=== PATIENT | female | born 1980 | race Caucasian/White ===

== ENCOUNTER 2016-09-12 14:50 | Emergency (ER) | payer MEDICAID ==
[2016-09-12 15:52] LABS: COLOR YELLOW; LEUKOCYTE ESTERASE,URINE NEGATIVE (NEGATIVE); NITRITE,URINE NEGATIVE (NEGATIVE); PH,URINE 5.5 (5.0-7.5)
--- NOTE | 2016-09-12 16:03 | UCPHY ---
[id number] since yesterday. Denies fever/chills Source: Patient Exam Limitations: No limitations - Personal History LMP (Females 10-55): IUD In Place Tetanus Vaccine Date: less than 10 years - Medical/Surgical History Hx Asthma: No Hx Chronic Respiratory Disease: No Hx Diabetes: No Hx Cardiac Disease: No Hx Renal Disease: No Hx Cirrhosis: No Hx Alcoholism: No Hx HIV/AIDS: No Hx Splenectomy or Spleen Trauma: No Other PMH: Med hx-PCOS. Surg-umbilical hernia,2 c-sect,bilat feet,appy - Family History Significant Family History: No pertinent family hx - Social History Smoking Status: Never smoked Time Seen by Provider: 09/12/16 15:21 HPI/ROS: CHIEF COMPLAINT: urinary frequency, urgency, suprapubic pain HISTORY OF PRESENT ILLNESS: 36-year-old female with history of PCOS and IUD in place presents to Urgent Care complaining of urinary frequency and urgency that started last night and has continued today. Patient reports mild suprapubic tenderness. Patient denies dysuria or hematuria. No nausea, vomiting or diarrhea. Patient reports this feels similar to previous urinary tract infections. Patient denies vaginal discharge, she reports she has not been sexually active for over a year, she denies history of STDs. Patient denies back pain. REVIEW OF SYSTEMS: A comprehensive 10 point review of systems is otherwise negative aside from elements mentioned in the history of present illness. (Fidelina Adhikari) - Physical Exam Exam: Physical Exam Gen: Alert and Oriented, NAD HEENT: PERRL, moist mucous membranes NECK: no meningismus CV: regular rate and regular rhythm PULM: CTAB, no wheezes ABDOMEN: soft, right and left lower quadrant tenderness to palpation with suprapubic tenderness, no rebound tenderness, no peritoneal signs BS present BACK: No CVA tenderness NEURO: Neurologically grossly intact EXTREMITIES: normal appearing SKIN: no rash or break in skin on exposed skin PSYCH: answers questions appropriately. (Fidelina Adhikari) Constitutional: Initial Vital Signs Temperature (C) 36.7 C 09/12/16 15:24 Heart Rate 82 09/12/16 15:24 Respiratory Rate 16 09/12/16 15:24 Blood Pressure 127/75 H 09/12/16 15:24 O2 Sat (%) 97 09/12/16 15:24 O2 Delivery Mode Room Air Allergies/Adverse Reactions: cephalexin monohydrate [From Keflex] Allergy (Mild, Verified 09/12/16 15:23) latex [Latex] Allergy (Mild, Verified 09/12/16 15:23) hydrocodone bitartrate [From Vicodin] Allergy (Verified 09/12/16 15:23) Home Medications: Medication Instructions Recorded EPINEPHRINE [EPIPEN] 0.3 mg IJ ONCE PRN #2 kit 02/19/16 Metformin HCl 09/12/16 Medical Decision Making ED Course/Re-evaluation: 36-year-old nontoxic-appearing female presents complaining of urinary frequency and urgency that started last night and is worse today. She reports suprapubic tenderness. Urinalysis shows no evidence of urinary tract infection, urine test is negative. Patient has a history of PCOS, she has a IUD in place. Patient has lower abdominal tenderness to palpation on exam, I am recommending an ultrasound and ultrasound is not available at Urgent Care, she agrees to go to [facility] for further evaluation including ultrasound. I have spoken with Dr. Gaston about this patient. Patient will drive to the [facility] right now. ( Fidelina Adhikari) Urgent Care PA supervision Physician documentation: The patient was evaluated and managed by the physician assistant librarian. My co- signature indicates that I have reviewed this chart and I agree with the findings and plan of care as documented. I am the secondary supervising physician. (Israel Kowalski) Differential Diagnosis: Diagnosis considered but not limited to urinary tract infection, ovarian cyst, ovarian torsion, STD, PID (Fidelina Adhikari) - Data Points Laboratory Results: Laboratory Results 09/12/16 17:43 09/12/16 17:43 Departure - Departure Disposition: Home, Routine, Self-Care Clinical Impression: Pelvic pain Condition: Good Instructions: Pelvic Pain in Women (ED), Abdominal Pain (ED) Additional Instructions: Follow-up with your primary care doctor for continued evaluation and care If symptoms worsen or new symptoms develop return to the emergency department for recheck Referrals: Claribel Martinez MD [Primary Care Provider] - As per Instructions - PQRS PQRS Measurement: na (Fidelina Adhikari)
[2016-09-12 17:13] VITALS: TEMP 98.4
[2016-09-12 18:23] LABS: % IMMATURE GRANULYOCYTES 0.5 % (0.0-1.1); ABSOLUTE IMMATURE GRANULOCYTES 0.04 10^3/uL (0.00-0.10); ADD DIFF? NO; ADD MORPH? NO; ADD SCAN? NO; ATYPICAL LYMPHOCYTE FLAG 10 (0-99); FRAGMENT RBC FLAG 0 (0-99); HEMOGLOBIN 13.2 g/dL (12.6-16.3); LEFT SHIFT FLG 0 (0-99); LIPEMIA HEMOLYSIS FLAG 90 (0-99); MEAN CELL HEMOGLOBIN 31.3 pg (27.9-34.1); MEAN CELL HEMOGLOBIN CONCENTR. 33.8 g/dL (32.4-36.7); MEAN CELL VOLUME 92.4 fL (81.5-99.8); MEAN PLATELET VOLUME 9.3 fL (8.7-11.7); PLATELET CLUMPS FLAG 0 (0-99); PLATELET COUNT 342 10^3/uL (150-400); RED BLOOD CELL COUNT 4.22 10^6/uL (4.18-5.33); RED CELL DISTRIBUTION WIDTH 12.6 % (11.5-15.2)
[2016-09-12 18:29] LABS: ANION GAP 8 mEq/L (8-16); CALCIUM 9.4 mg/dL (8.5-10.4); CARBON DIOXIDE 28 mEq/l (22-31); CHLORIDE 102 mEq/L (97-110); CREATININE 0.7 mg/dL (0.6-1.0); GLOMERULAR FILTRATION RATE > 60; GLUCOSE 96 mg/dL (70-100); SODIUM 138 mEq/L (134-144)
--- NOTE | 2016-09-12 19:13 | US ---
Transabdominal and Endovaginal Pelvic Ultrasound Clinical History: 36-year-old female in the ED with pelvic pain for 2 days. Her LMP is unknown, and s he has a Mirena IUD. She is with a prior history of PCOS. The patient is beta-hCG negative. TECHNIQUE: A curvilinear 5 MHz transducer was initially used to sonographically evaluate the pelvis, using a full urinary bladder as a window. To better assess the uterine architecture and the adnexal s tructures, endovaginal pelvic sonography was also performed. Color and spectral Doppler were used. Comparison: Pelvic sonography, dated October 22, 2012. Findings: Transabdominal Pelvic Sonography: The uterus measures 8.3 x 5.1 x 4.8 cm. The right and left ovaries are identified. The right ovary measures 2.3 x 1.5 x 3.1 cm, and the left ovary 2.5 x 3.2 x 2.7 cm an d contains a hemorrhagic follicular cyst measuring 1.9 x 1.6 x 2.0 cm. Intraovarian vascular flow is documented, with a resistive index on the left ovary measuring 0.64, and on the right ovary measuring 0.58. There is no free fluid. The visualized portions of the bladder are normal. Endovaginal Pelvic Sonography: The endometrium has a combined thickness of 3.7 mm. The intrauterine d evice is appropriately positioned, although there is a tiny amount of fluid in the endometrial canal near the distal portion of the IUD. The right and left ovaries were not seen using this modality. The re are some mildly prominent pelvic venous varices seen in the right and left adnexal regions, measur ing up to 4.0 mm on the right and 5.7 mm on the left. There are couple of hypoechoic complex nabothia n cysts (versus fibroids) at the level of the left cervix, measuring 1.1 x 0.9 x 0.9 cm (previous 1.1 x 0.8 x 0.9 cm), and a new one measuring 0.9 x 0.8 x 0.7 cm. There is no free fluid. Impression: 1. There is a 2.0 cm left ovarian hemorrhagic follicular cyst. There is no torsion or free fluid. 2. Appropriately-positioned intrauterine device, although there is a tiny amount of endometrial fluid in the canal near the distal portion of the IUD. 3. There are couple of complex nabothian cysts (versus cervical fibroids). Results were conveyed to Jean Hernandez PA-C. A Document Only message has been documented for BLAS Bautista in the [employer] system on 09/12/2016 19:09, Message ID [id number].
--- NOTE | 2016-09-12 19:51 | EDPHY ---
H & P Time Seen by Provider: 09/12/16 15:21 HPI/ROS: Chief complaint: Urinary symptoms, patient sent to emergency department for ultrasound History of present illness: This is a 36-year-old female sent from the [facility] to the emergency department for an ultrasound. Patient had the onset of urinary symptoms last night including urinary frequency and urgency. She has had associated pelvic pressure. She does have a history of urinary tract infections and this feels similar. However urinalysis at Urgent Care was unremarkable. She was sent here for further care. Patient denies other associated signs or symptoms including no fevers, no nausea or vomiting, no abdominal pain, no flank pain. Review of systems: A 10 point review of systems was obtained and other than described above was negative - Personal History LMP (Females 10-55): IUD In Place Tetanus Vaccine Date: less than 10 years - Medical/Surgical History Hx Asthma: No Hx Chronic Respiratory Disease: No Hx Diabetes: No Hx Cardiac Disease: No Hx Renal Disease: No Hx Cirrhosis: No Hx Alcoholism: No Hx HIV/AIDS: No Hx Splenectomy or Spleen Trauma: No Other PMH: Med hx-PCOS. Surg-umbilical hernia,2 c-sect,bilat feet,appy - Family History Significant Family History: No pertinent family hx - Social History Smoking Status: Never smoked - Physical Exam Exam: General Appearance: Alert, nontoxic. Eyes: Pupils equal and round no injection. Respiratory: Chest is nontender, lungs are clear to auscultation. Cardiac: regular rate and rhythm. Gastrointestinal: Abdomen is soft and nontender, no masses, bowel sounds normal. Genitourinary: No CVA tenderness Musculoskeletal: Neck is supple and nontender. Extremities have full range of motion and are nontender. Skin: No rashes or lesions. Neurologic: Alert and oriented. Strength and sensation intact and symmetrical. Constitutional: Initial Vital Signs Temperature (C) 36.7 C 09/12/16 15:24 Heart Rate 82 09/12/16 15:24 Respiratory Rate 16 09/12/16 15:24 Blood Pressure 127/75 H 09/12/16 15:24 O2 Sat (%) 97 09/12/16 15:24 O2 Delivery Mode Room Air Allergies/Adverse Reactions: cephalexin monohydrate [From Keflex] Allergy (Mild, Verified 09/12/16 15:23) latex [Latex] Allergy (Mild, Verified 09/12/16 15:23) hydrocodone bitartrate [From Vicodin] Allergy (Verified 09/12/16 15:23) Home Medications: Medication Instructions Recorded EPINEPHRINE [EPIPEN] 0.3 mg IJ ONCE PRN #2 kit 02/19/16 Metformin HCl 09/12/16 Medical Decision Making - Diagnostics Imaging: Pelvic ultrasound shows left hemorrhagic cyst and nabothian cysts, IUD in place , see report for complete details ED Course/Re-evaluation: Patient seen under the supervision of my secondary supervising physician Dr. Mahesh Gaston. Patient presents to the emergency department with urinary frequency and urgency and pelvic discomfort. She is nontoxic. Afebrile and vital signs are stable. Physical exam is benign. Urinalysis from urgent care is reviewed and unremarkable. Baseline blood studies are unremarkable. Ultrasound does show hemorrhagic cyst, and both he and cysts, she does have a history of PCOS. At this time I have discussed with her it is not clear as to the exact cause of her symptoms. I have offered a pelvic exam for further evaluation and care but she has declined. She is asked to follow up with her primary care doctor for further evaluation and care. Strict return precautions are given. Patient voiced understanding and agreement with plan. Differential Diagnosis: Included but not limited to urinary tract infection, nephrolithiasis, vaginal infections, PID, IUD displacement, ovarian cyst, ovarian torsions - Data Points Laboratory Results: Laboratory Results 09/12/16 17:43 09/12/16 17:43 09/12/16 09/12/16 17:43 15:33 WBC 7.80 10^3/uL (3.80-9.50) RBC 4.22 10^6/uL (4.18-5.33) Hgb 13.2 g/dL (12.6-16.3) Hct 39.0 % (38.0-47.0) MCV 92.4 fL (81.5-99.8) MCH 31.3 pg (27.9-34.1) MCHC 33.8 g/dL (32.4-36.7) RDW 12.6 % (11.5-15.2) Plt Count 342 10^3/uL (150-400) MPV 9.3 fL (8.7-11.7) Neut % (Auto) 62.9 % (39.3-74.2) Lymph % (Auto) 29.4 % (15.0-45.0) [place] % (Auto) 5.8 % (4.5-13.0) Eos % (Auto) 1.0 % (0.6-7.6) Baso % (Auto) 0.4 % (0.3-1.7) Nucleat RBC Rel Count 0.0 % (0.0-0.2) Absolute Neuts (auto) 4.91 10^3/uL (1.70-6.50) Absolute Lymphs (auto) 2.29 10^3/uL (1.00-3.00) Absolute Monos (auto) 0.45 10^3/uL (0.30-0.80) Absolute Eos (auto) 0.08 10^3/uL (0.03-0.40) Absolute Basos (auto) 0.03 10^3/uL (0.02-0.10) Absolute Nucleated RBC 0.00 10^3/uL (0-0.01) Immature Gran % 0.5 % (0.0-1.1) Immature Gran # 0.04 10^3/uL (0.00-0.10) Sodium 138 mEq/L (134-144) Potassium 4.0 mEq/L (3.5-5.2) Chloride 102 mEq/L (97-110) Carbon Dioxide 28 mEq/l (22-31) Anion Gap 8 mEq/L (8-16) BUN 10 mg/dL (7-23) Creatinine 0.7 mg/dL (0.6-1.0) Estimated GFR > 60 Glucose 96 mg/dL (70-100) Calcium 9.4 mg/dL (8.5-10.4) Urine Color YELLOW Urine Appearance CLEAR Urine pH 5.5 (5.0-7.5) Ur Specific [place] >= 1.030 (1.002-1.030) Urine Protein NEGATIVE (NEGATIVE) Urine Ketones NEGATIVE (NEGATIVE) Urine Blood NEGATIVE (NEGATIVE) Urine Nitrate NEGATIVE (NEGATIVE) Urine Bilirubin NEGATIVE (NEGATIVE) Urine Urobilinogen 0.2 EU (0.2-1.0) Ur Leukocyte Esterase NEGATIVE (NEGATIVE) Ur Culture Indicated? NOT INDICATED (NI) Urine Glucose NEGATIVE (NEGATIVE) Urine Test NEGATIVE Departure - Departure Disposition: Home, Routine, Self-Care Clinical Impression: Pelvic pain Condition: Good Instructions: Abdominal Pain (ED), Pelvic Pain in Women (ED) Additional Instructions: Follow-up with your primary care doctor for continued evaluation and care If symptoms worsen or new symptoms develop return to the emergency department for recheck Referrals: Claribel Martinez MD [Primary Care Provider] - As per Instructions
[2016-09-12 20:05] VITALS: BP 128/78; PULSE 70; RESP 14; O2SAT 94
== END 2016-09-12 20:05 | disposition home or self-care (01) ==
LOC: CED 14:50
DX: R10.2 Pelvic and perineal pain (principal); Z91.040 Latex allergy status
CPT/HCPCS: 81003-PO; 81025-PO; 99214-PO; G0463-PO

== ENCOUNTER 2016-12-11 10:41 | Emergency (ER) | payer MEDICAID ==
[2016-12-11 10:45] VITALS: TEMP 98.6
[2016-12-11] MEDS ORDERED: NS 1,000 ML IV ONE (10:45)
[2016-12-11] MEDS ORDERED: ONDANSETRON 4 MG/2 ML VIAL ONE (10:46)
[2016-12-11] MEDS ORDERED: methylPREDNISolone SOD SUCC 125 MG/2 ML VIAL ONE (10:46)
[2016-12-11] MEDS ORDERED: FAMOTIDINE 20 MG/2 ML SDV ONE (10:47)
[2016-12-11] MEDS ORDERED: methylPREDNISolone SOD SUCC 125 MG/2 ML VIAL IVP ONE (11:31)
[2016-12-11] MEDS ORDERED: FAMOTIDINE 20 MG in NS 100 ML IV ONE (11:32)
--- NOTE | 2016-12-11 14:42 | UCPHY ---
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 She also complains of facial swelling. She denies any difficulty breathing. She denies any rash or itching. She denies any nausea, vomiting abdominal pain or chest pain. She had a similar reaction when year ago for the 1st time. She did not have her EpiPen with her today so she came to seek medical attention promptly. REVIEW OF SYSTEMS: As in HPI, and all other systems reviewed and are negative Source: Patient - Personal History LMP (Females 10-55): IUD In Place Current Tetanus/Diphtheria Vaccine: No Current Tetanus Diphtheria and Acellular Pertussis (TDAP): No Tetanus Vaccine Date: less than 10 years - Medical/Surgical History Hx Asthma: No Hx Chronic Respiratory Disease: No Hx Diabetes: No Hx Cardiac Disease: No Hx Renal Disease: No Hx Cirrhosis: No Hx Alcoholism: No Hx HIV/AIDS: No Hx Splenectomy or Spleen Trauma: No Other PMH: Med hx-PCOS. Surg-umbilical hernia,2 c-sect,bilat feet,appy - Family History Significant Family History: No pertinent family hx - Social History Smoking Status: Never smoked - Physical Exam Exam: General Appearance: Alert, positive facial swelling and redness, no stridor or respiratory distress. Eyes: Pupils equal and round no pallor or injection. ENT, Mouth: Mucous membranes moist. Lips within normal limits, tongue not obviously swollen Respiratory: Normal, effort, There are no retractions, lungs are clear to auscultation. Cardiovascular: Regular rate and rhythm. Gastrointestinal: Abdomen is soft and nontender, no masses, bowel sounds normal. Neurological: Awake, alert and oriented x 3, no pronator drift, normal gait, no pronator drift Skin: Warm and dry, no rashes. Positive red area on left palmar eminence of site of the sting Musculoskeletal: Neck is supple nontender. Extremities are symmetrical, full range of motion. Psychiatric: Patient has normal affect, there is no agitation. Constitutional: Initial Vital Signs Temperature (C) 37 C 12/11/16 10:42 Heart Rate 102 H 12/11/16 10:42 Respiratory Rate 18 12/11/16 10:42 Blood Pressure 150/103 H 12/11/16 10:42 O2 Sat (%) 95 12/11/16 10:42 O2 Delivery Mode Room Air Allergies/Adverse Reactions: cephalexin monohydrate [From Keflex] Allergy (Mild, Verified 12/11/16 10:42) latex [Latex] Allergy (Mild, Verified 12/11/16 10:42) hydrocodone bitartrate [From Vicodin] Allergy (Verified 12/11/16 10:42) Home Medications: Medication Instructions Recorded EPINEPHRINE [EPIPEN] 0.3 mg IJ ONCE PRN #2 kit 02/19/16 Metformin HCl 09/12/16 EPINEPHRINE [EPIPEN] 0.3 mg IM ONCE #2 syr 12/11/16 Medical Decision Making ED Course/Re-evaluation: Patient presents with allergic reaction with throat tightening and tongue tingling and tachycardia and therefore was immediately given IM epinephrine, along with IV Benadryl, Pepcid and Solu-Medrol. Patient's symptoms rapidly resolved and she was observed emerged department 4 hours with no recurrence of her symptoms. We discussed home care the patient is discharged home with a prescription for an EpiPen. - Data Points Medications Given: Discontinued Medications Diphenhydramine HCl (Benadryl Injection) 25 mg IVP EDNOW ONE Stop: 12/11/16 11:33 Last Admin: 12/11/16 11:44 Dose: 25 mg Epinephrine HCl (Epinephrine) 0.5 mg SC ONCE ONE Stop: 12/11/16 11:36 Last Admin: 12/11/16 11:44 Dose: 0.5 mg Famotidine 20 mg/ Sodium (Chloride) 102 mls @ 408 mls/hr IV EDNOW ONE Stop: 12/11/16 11:46 Last Admin: 12/11/16 11:44 Dose: 102 mls Methylprednisolone Sodium Succinate (Solu-Medrol) 125 mg IVP EDNOW ONE Stop: 12/11/16 11:32 Last Admin: 12/11/16 11:45 Dose: 125 mg Departure - Departure Disposition: Home, Routine, Self-Care Clinical Impression: Allergic reaction to bee sting Condition: Good Instructions: General Allergic Reaction (ED) Additional Instructions: You were seen by Dr. Arleth Jesus today. Return for any worsening or new concerns. Tania your EpiPen with you all times. Referrals: Claribel Martinez MD [Primary Care Provider] - As per Instructions Prescriptions: EPINEPHRINE [EPIPEN] 0.3 mg IM ONCE #2 syr - PQRS PQRS Measurement: NA
[2016-12-11 14:48] VITALS: BP 118/85; PULSE 90; RESP 16; O2SAT 95
== END 2016-12-11 14:43 | disposition home or self-care (01) ==
LOC: CED 10:41
DX: T63.441A Toxic effect of venom of bees, accidental (unintentional), initial encounter (principal); Z91.030 Bee allergy status
CPT/HCPCS: 96361-PO; 96372-PO; 96374-PO; 96375-PO; 99214-PO; G0463-PO; J0171; J1200; J2405

== ENCOUNTER → 2018-01-26 | Outpatient (CLI) | payer MEDICAID | LOC: BMCIMAGING 10:19 | PROVIDERS: ATTEND Physician Assistant | DX: M25.511 Pain in right shoulder (principal) ==

== ENCOUNTER 2018-03-03 09:07 | Emergency (ER) | payer MEDICAID ==
[2018-03-03] MEDS ORDERED: DIAZEPAM 5 MG TAB PO ONE (09:51)
[2018-03-03] MEDS ORDERED: traMADol 50 MG TAB PO ONE (09:51)
--- NOTE | 2018-03-03 09:57 | EDPHY ---
H & P Time Seen by Provider: 03/03/18 09:32 HPI/ROS: This patient complains of lumbar back pain. She explains a yesterday at 8:00 a.m. She was doing lifts when she experienced a "pop" sensation& sound in her midline lumbar spine 3/10 intensity pain. She then did lifts thereafter and tolerated lifts. However this morning she woke up with 8/ 10 lumbar pain the mid difficult to get out of bed or to walk. She had to crawl to the bathroom to get Aleve and she took 3 Aleve spoke 2 hr prior to arrival. She reports minimal improvement from Aleve. The pain worsens with movement. No other exacerbating factors are noted. She describes the nature the pain as both achy and burning. Her brother drove her here by private vehicle for further evaluation of the symptoms. ROS: Constitutional: No fevers. No fatigue. Pulmonary: No shortness of breath. Cardiovascular: No chest pain GI: She reports no primary belly pain but she feels a muscle spasm discomfort affiliated with the back pain is wrapping toward the front a bit on the left. : No hematuria, frequency urgency or other symptoms Integumentary: No skin rash Neuro: No bowel or bladder incontinence. She does have some burning dysesthesias to the left lateral thigh more than right. No numbness or weakness in lower extremities. 10 point ROS is otherwise negative. Past Medical/Surgical History: Spondylolisthesis Who scoliosis Right sided hip dysplasia Social History: No alcohol use. No drug use. Smoking Status: Former smoker Physical Exam: General Appearance: Alert, no distress. Eyes: Pupils equal and round no pallor or injection. ENT, Mouth: Mucous membranes moist. Respiratory: There are no retractions, lungs are clear to auscultation. Cardiovascular: Regular rate and rhythm. Gastrointestinal: Abdomen is soft and nontender, no masses, bowel sounds normal. Back: Mild to moderate midline tenderness around L4-5 region and left-sided more than right side paraspinous muscular tenderness. Straight leg raise positive on the left at 15 degrees. Negative on the right. Neurological: GCS 15. She has no light touch sensation deficits or lower extremities. She maintains 5/5 strength in great toe dorsiflexion plantar flexion bilaterally. No saddle anesthesia. Skin: Warm and dry, no rashes. Musculoskeletal: Neck is supple nontender. Extremities are symmetrical, full range of motion. Psychiatric: Mood and affect are normal. DIFFERENTIAL DIAGNOSIS: After history and physical exam differential diagnosis was considered for low back strain, disc herniation, posterior element fracture , compression fracture Constitutional: Initial Vital Signs Temperature (C) 36.9 C 03/03/18 09:11 Heart Rate 76 03/03/18 09:11 Respiratory Rate 20 03/03/18 09:11 Blood Pressure 144/98 H 03/03/18 09:11 O2 Sat (%) 93 03/03/18 09:11 O2 Delivery Mode Room Air Allergies/Adverse Reactions: cephalexin monohydrate [From Keflex] Allergy (Mild, Verified 03/03/18 09:15) Vomiting latex [Latex] Allergy (Mild, Verified 03/03/18 09:15) Rash hydrocodone bitartrate [From Vicodin] Allergy (Verified 03/03/18 09:15) Itching Home Medications: Medication Instructions Recorded FLUoxetine 03/03/18 Methocarbamol [Robaxin 750 mg (*)] 750 - 1,500 mg PO QID PRN #30 tab 03/03/18 traMADol [Ultram 50 mg (*)] 50 - 100 mg PO Q4 PRN #20 tab 03/03/18 MDM/Departure - MDM Diagnostics: Two view lumbar spine x-ray reveals moderate L5-S1 anterior spondylolisthesis increased compared to a prior lumbar spine x-ray by my interpretation Imaging Results: Imaging Impressions Lumbar Spine X-Ray 03/03/18 09:54 Impression: There has been progression in the spondylolisthesis at L5-S1, now "grade II" ( measuring 12 mm), with an accompanying more pronounced spondylolysis. There is also degenerative disk disease at L4-L5 and L5-S1. If there is further clinical concern regarding the patient's symptoms, MR imaging could be considered. Imaging: I viewed and interpreted images myself Medications Given: Discontinued Medications Acetaminophen (Tylenol) 1,000 mg PO EDNOW ONE Stop: 03/03/18 10:24 Last Admin: 03/03/18 10:31 Dose: 1,000 mg Diazepam (Valium) 5 mg PO EDNOW ONE Stop: 03/03/18 09:52 Last Admin: 03/03/18 09:57 Dose: 5 mg Tramadol HCl (Ultram) 50 mg PO EDNOW ONE Stop: 03/03/18 09:52 Last Admin: 03/03/18 09:56 Dose: 50 mg ED Course/Re-evaluation: Discussion: Imaging findings indicate a grade 2 anterior spondylolisthesis of L5 on S1. Patient has no clinical findings to suggest cauda equina or other acute complications. I counseled regarding this finding with plan to follow up with Neurosurgery as an outpatient consult. I gave her instructions about avoiding lifting more than 5 lb and limiting activity. Will plan to treat her pain with NSAIDs, methocarbamol muscle relaxant, Tylenol and tramadol. She stands the need to return emergency department should she develop worsening symptoms despite treatment plan. - Depart Disposition: Home, Routine, Self-Care Clinical Impression: Spondylolisthesis at L5-S1 level Acute low back pain Qualifiers: Back pain laterality: midline Sciatica presence: with sciatica Sciatica laterality: sciatica of left side Qualified Code(s): M54.42 - Lumbago with sciatica, left side Condition: Good Instructions: Low Back Strain (ED) Additional Instructions: DX: L5 on S1 anterior spondylolisthesis Plan: Ibuprofen 400-600 mg per 6 hours regularly for the next week then as needed. Methocarbamol muscle relaxants as needed. Tramadol or Tylenol as needed for pain. No driving, alcohol or work while on tramadol. Avoid lifting more than 5-10 pounds until symptoms improve. Call the neurosurgeon for a followup appointment Go to the emergency department for worsening of your symptoms despite the treatment plan. Prescriptions: Methocarbamol [Robaxin 750 mg (*)] 750 - 1,500 mg PO QID PRN #30 tab PRN Reason: Muscle Spasms traMADol [Ultram 50 mg (*)] 50 - 100 mg PO Q4 PRN #20 tab PRN Reason: breakthrough pain Referrals: Claribel Martinez MD [Primary Care Provider] - As per Instructions Valerio Cheema MD [Medical Doctor] - As per Instructions
[2018-03-03] MEDS ORDERED: ACETAMINOPHEN 500 MG TAB PO ONE (10:23)
[2018-03-03 10:29] VITALS: BP 126/88
== END 2018-03-03 10:32 | disposition home or self-care (01) ==
LOC: CED 09:07
DX: M54.42 Lumbago with sciatica, left side (principal); M43.16 Spondylolisthesis, lumbar region; Z87.891 Personal history of nicotine dependence; Z91.040 Latex allergy status
CPT/HCPCS: 72100-PO

== ENCOUNTER 2018-10-16 20:46 | Emergency (ER) | payer MEDICAID, OTHER ==
[2018-10-16] MEDS ORDERED: METOCLOPRAMIDE 10 MG/2 ML VIAL IVP ONE (21:20)
[2018-10-16] MEDS ORDERED: NS 1,000 ML IV ONE (21:20)
[2018-10-16] MEDS ORDERED: KETOROLAC 15 MG/1 ML SDV IVP ONE ×2 (21:21→22:22)
--- NOTE | 2018-10-16 21:32 | EDPHY ---
H & P Time Seen by Provider: 10/16/18 21:09 HPI/ROS: This patient describes onset of headache earlier today gradual in onset around 11:00 a.m. Increasing in intensity since then to its current 8/10 sharp in nature left more than right frontal location worse with movement. She has associated photophobia and hyperacusis. She also describes nausea without vomiting. She tried Excedrin without improvement and came in by private vehicle with her for evaluation. She did not experience an aura with this headache like she usually does with her migraines. ROS: Constitutional: No fevers or chills HEENT: No recent head trauma. No URI symptoms. Neuro: No numbness tingling or focal weakness. No confusion. Pulmonary: No cough shortness of breath Cardiovascular: No complaints GI: Nausea but no vomiting. No abdominal pain : No urinary symptoms or other complaints 10 point review of symptoms is performed and otherwise negative with exception of pertinent positives and negatives listed in HPI and ROS Past Medical/Surgical History: Migraines Smoking Status: Former smoker Physical Exam: Physical exam: Vital signs are normal General: Patient is in no acute distress. HEENT: Is no external evidence of trauma on exam. Eyes: Pupils are equal and reactive to light. Extraocular motions are intact. Optic fundi: Clear with no papilledema or hemorrhage. Nose atraumatic. Ears: Clear bilaterally with no hemotympanum. Oropharynx: No dental trauma or malocclusion. No intraoral lacerations. Eyes: Pupils are equal and reactive to light. Extraocular motions are intact. Optic fundi: Clear with no papilledema or hemorrhage. Lungs: Clear to auscultation bilaterally Neck: Supple no meningismus. Cardiac: Regular rate and rhythm no murmur gallop or rub. Abdomen: Soft nontender no organomegaly Neuro: GCS of 15. Cranial nerves II through XII intact. Cerebellar exam is normal as judged by symmetric rapid hand movements bilaterally. No pronator drift. No sensory or motor deficits are appreciated. Initial differential diagnosis: Migraine, tension headache, [employer] lesion, intracranial bleed Constitutional: Initial Vital Signs Temperature (C) 37.2 C 10/16/18 20:59 Heart Rate 67 10/16/18 20:59 Respiratory Rate 16 10/16/18 20:59 Blood Pressure 152/100 H 10/16/18 20:59 O2 Sat (%) 94 10/16/18 20:59 O2 Delivery Mode Room Air Allergies/Adverse Reactions: bee venom protein (honey bee) Allergy (Verified 10/16/18 20:58) Pt reports anaphylaxis and swelling cephalexin monohydrate [From Keflex] Allergy (Verified 10/16/18 20:58) Pt reports Vomiting hydrocodone bitartrate [From Vicodin] Allergy (Verified 10/16/18 20:58) Pt reports Itching latex [Latex] Allergy (Verified 10/16/18 20:58) Pt reports Rash Home Medications: Medication Instructions Recorded EPINEPHrine [Epipen 0.3 MG] 0.3 mg IM ONCE #2 syr 03/17/18 Ondansetron Odt [Zofran Odt] 4 - 8 mg PO Q4PRN PRN #4 tab 10/16/18 SUMAtriptan [Imitrex 50 MG (RX)] 50 - 100 mg PO Q2H PRN #6 tab 10/16/18 MDM/Departure - MDM Medications Given: Discontinued Medications Diphenhydramine HCl (Benadryl Injection) 25 mg IVP EDNOW ONE Stop: 10/16/18 21:21 Last Admin: 10/16/18 21:36 Dose: 25 mg Diphenhydramine HCl (Benadryl Injection) 25 mg IVP EDNOW ONE Stop: 10/16/18 22:22 Last Admin: 10/16/18 22:29 Dose: 25 mg Sodium Chloride (Ns) 1,000 mls @ 0 mls/hr IV ONCE ONE; Wide Open PRN Reason: Protocol Stop: 10/16/18 21:21 Last Admin: 10/16/18 21:36 Dose: 1,000 mls Ketorolac Tromethamine (Toradol) 15 mg IVP EDNOW ONE Stop: 10/16/18 21:22 Last Admin: 10/16/18 21:35 Dose: 15 mg Ketorolac Tromethamine (Toradol) 15 mg IVP EDNOW ONE Stop: 10/16/18 22:23 Last Admin: 10/16/18 22:30 Dose: 15 mg Lorazepam (Ativan Injection) 0.5 mg IVP EDNOW ONE Stop: 10/16/18 22:22 Last Admin: 10/16/18 22:30 Dose: 0.5 mg Metoclopramide HCl (Reglan Injection) 10 mg IVP EDNOW ONE Stop: 10/16/18 21:21 Last Admin: 10/16/18 21:36 Dose: 10 mg ED Course/Re-evaluation: IV normal saline bolus Reglan Benadryl and Toradol IV at 10:30 p.m. I checked the patient reported headache down to 4/10 intensity but was complaining of restlessness consistent with mild akathisia. She is then treated with additional 25 mg of Benadryl 0.5 mg of Ativan and 15 mg of Toradol with relief of symptoms. Discussion: Patient here with migraine headache improved with typical migraine medications. She did have mild akathisia with Reglan that responded well to Benadryl and Ativan. Will start her on a trial Imitrex and Zofran with plan to follow up with primary care physician. She understands need to return to the emergency department should she develop any worsening of symptoms. Based on history and physical exam here is well as improvement with typical migraine medications, do not think the patient has [employer] infection, ENV[employer] lesion or other red flag findings that would warrant further workup at this time. - Depart Disposition: Home, Routine, Self-Care Clinical Impression: Migraine Qualifiers: Migraine type: without aura Status migrainosus presence: without status migrainosus Intractability: not intractable Qualified Code(s): G43.009 - Migraine without aura, not intractable, without status migrainosus Condition: Good Instructions: Migraine Headache (ED) Additional Instructions: Diagnosis: Migraine headache Plan: Drink plenty fluids Home to rest For subsequent migraines, try Imitrex, plenty fluids and rest Zofran if needed for nausea vomiting Follow up primary care physician Return emergency department for any significant worsening despite treatment plan Prescriptions: Ondansetron Odt [Zofran Odt] 4 - 8 mg PO Q4PRN PRN #4 tab PRN Reason: Vomiting SUMAtriptan [Imitrex 50 MG (RX)] 50 - 100 mg PO Q2H PRN #6 tab PRN Reason: migraine Referrals: Claribel Martinez MD [Primary Care Provider] - As per Instructions
[2018-10-16] MEDS ORDERED: LORazepam 2 MG/ML INJ IVP ONE (22:21)
[2018-10-16 22:49] VITALS: BP 154/88
== END 2018-10-16 23:25 | disposition home or self-care (01) ==
LOC: CED 20:46
DX: G43.009 Migraine without aura, not intractable, without status migrainosus (principal); E86.9 Volume depletion, unspecified; Z87.891 Personal history of nicotine dependence
CPT/HCPCS: 96361-ER; 96374-ER; 96375-ER; 96376-ER; 99284-ER; J1200; J1885; J2765